=== PATIENT | female | born 1945 | race Caucasian/White ===

== ENCOUNTER 2017-10-19 09:38 | Emergency (ER) | payer OTHER ==
[~2017-10-19] VITALS: Ht 165.1 cm; Wt 116.0 kg
[2017-10-19 10:13] LABS: HEMATOCRIT 35.7 % (36.0-46.0); MCH 30.9 PG (29.0-34.0); MCHC 33.6 G/DL (30.0-36.0); PLATELET COUNT 209 K/uL (156-360); RBC DIS.WIDTH-CV 13.2 % (11.8-14.6); RBC DIS.WIDTH-SD 44.8 % (39-53); RED BLOOD COUNT 3.88 M/uL (3.80-5.20); WHITE BLOOD COUNT 7.2 K/uL (4.1-10.2)
[2017-10-19 10:28] LABS: ALBUMIN 3.7 g/dL (3.2-4.8); CHLORIDE 101 mEq/L (99-109); POTASSIUM 4.2 mEq/L (3.7-5.4); SODIUM 135 mEq/L (136-147)
[2017-10-19 10:31] LABS: GLUCOSE 129 mg/dL (70-99); TOTAL PROTEIN 7.1 g/dL (6.4-8.3)
[2017-10-19 10:33] LABS: TOTAL BILIRUBIN 0.4 mg/dL (0.0-1.0)
[2017-10-19 10:34] LABS: ALKALINE PHOSPHATASE 74 IU/L (3-129); CREATININE 0.8 mg/dL (0.6-1.3); GFR ESTIMATE (CALCULATED) > 59 mL/min/; TROP-I INTERPRETATION NEGATIVE; TROPONIN-I < 0.01 ng/mL (0.0-0.30)
[2017-10-19 10:35] LABS: UREA NITROGEN (BUN) 15 mg/dL (9-23)
[2017-10-19 10:36] LABS: AST (GOT) 17 IU/L (2-34)
[2017-10-19 10:37] LABS: ALT (GPT) 14 IU/L (3-49)
[2017-10-19] MEDS ORDERED: PREDNISONE20 MG PO (13:11)
[2017-10-19] MEDS ORDERED: NORCO 5/3251 TABLET PO (13:11)
[2017-10-19 13:28] LABS: APPEARANCE SL.HAZY ((CLEAR)); BILIRUBIN NEGATIVE; BLOOD NEGATIVE; COLOR AMBER ((YELLOW)); GLUCOSE (STRIP) NEGATIVE; KETONES NEGATIVE; LEUKOCYTES LARGE; NITRITE POSITIVE; PROTEIN (STRIP) 30; SPECIFIC GRAVITY 1.029 (1.000-1.030); UROBILINOGEN 0.2 MG/DL (0.2-1.0)
[2017-10-19 13:36] LABS: BACTERIA 1+ /HPF; EPITHELIAL CELLS RARE /HPF; MUCUS 1+ /LPF; RED BLOOD CELLS 0-5 /HPF (0-5); UCUL ADDED? YES; WHITE BLOOD CELLS TNTC /HPF (0-5)
[2017-10-19 14:09] VITALS: BP 150/84
== END 2017-10-19 14:10 | disposition home or self-care (01) ==
LOC: EME 09:38
PROVIDERS: Emergency Medicine Emergency Medical Services
DX: M25.50 Pain in unspecified joint (principal); T39.8X5A Adverse effect of other nonopioid analgesics and antipyretics, not elsewhere classified, initial encounter; L40.50 Arthropathic psoriasis, unspecified; K50.90 Crohn's disease, unspecified, without complications; Z96.659 Presence of unspecified artificial knee joint
CPT/HCPCS: 80053; 81003; 83880; 84484; 85027; 87077; 87086; 87186; 99281; 99285; J2270; J7512